=== PATIENT | female | born 1980 | race Caucasian/White ===

== ENCOUNTER 2017-06-10 07:31 | Inpatient (IN) | payer MEDICAID ==
[2017-06-10 08:26] LABS: #Eosinphils 0.1 thou/uL (0.0-0.7); #Lymphocytes 0.5 thou/uL (1.20-3.40); #Monocytes 0.4 thou/uL (0.11-0.59); %Basophils 0.2 % (0.0-1.0); %Eosinophils 1.5 % (0.0-10.0); %Monocytes 3.8 % (0.0-10.0); %Neutrophils 89.5 % (42.0-75.0); Hemoglobin 10.6 g/dL (12.0-16.0); Mean Corpuscular HGB CONC 32.8 g/dL (32.0-36.0); Mean Corpuscular Hemoglobin 31.1 pg (27.0-31.0); Mean Platelet Volume 6.8 fL (7.4-10.4); Platelet Count 351 thou/uL (130-400); White Blood Cell (WBC) Count 10.1 thou/uL (4.8-10.8)
[2017-06-10 08:31] LABS: BHCG - Serum Negative (NEGATIVE); Pregs Control Background? CLEAR/WHITE (CLR/WHITE); Pregs Control Bar Appear? YES (CONTROL BAR)
[2017-06-10 08:41] LABS: ALT (SGPT) 34 U/L (8-55); AST (SGOT) 22 U/L (5-34); Albumin 3.7 g/dL (3.5-5.0); Alkaline Phosphatase 87 U/L (40-150); Anion Gap 8 mmol/L (10-20); BUN (Urea Nitrogen) 10 mg/dL (7.0-18.7); Bilirubin, Total 0.7 mg/dL (0.2-1.2); Calc. Creatinine Clearance 0 mL/min (70-130); Calcium 8.9 mg/dL (7.8-10.44); Carbon Dioxide 31 mmol/L (22-29); Chloride 100 mmol/L (98-107); Estimated GFR-MDRD Greater than 90; Globulin 3.3 g/dL (2.4-3.5); Glucose 105 mg/dL (70-105); Lipase 10 U/L (8-78); Potassium 3.7 mmol/L (3.5-5.1); Sodium 135 mmol/L (136-145)
[2017-06-10] MEDS ORDERED: Morphine 4 MG/ML VIAL ONE (08:41)
[2017-06-10] MEDS ORDERED: Ondansetron HCl/PF 4 MG/2 ML Vial ONE (08:41)
[2017-06-10 08:58] LABS: INR-International Normal Ratio 1.3; Prothrombin Time 15.9 SEC (12.0-14.7)
[2017-06-10 09:26] LABS: Bilirubin Small (Negative); Blood, Urine Negative (Negative); Clarity CLEAR (Clear); Glucose, Urine (Dipstick) Negative (Negative); Leukocyte Trace (Negative); Nitrite Negative (Negative); Protein, Urine (Dipstick) 30 mg/dL (Neg-Trace); Specific Gravity, Urine 1.022 (1.002-1.036)
[2017-06-10 09:29] LABS: Hyaline Casts/LPF 4-6 HYALINE CAST LPF (0-3 Hyaline); Pathc Cast-AUWi Flag 0.27 (0-2.49); RBC/HPF 0-3 HPF (0-3)
[2017-06-10 09:30] LABS: Pregnancy Test - Urine (BHCG) Negative (Negative); Pregu Control Background? CLEAR/WHITE (CLR/WHITE); Pregu Control Bar Appear? YES (CONTROL BAR); Specific Gravity 1.022 (1.002-1.036)
[2017-06-10 09:39] LABS: Bacteria/HPF 1+ HPF (None Seen); Renal Epithelial 0-3 HPF (0-3); Transitional Epithelial 0-3 HPF (0-3)
--- NOTE | 2017-06-10 09:52 | CT ---
CT ABDOMEN AND PELVIS: HISTORY: This 36-year-old presents with a history of abdominal pain. FINDINGS: Contrast-enhanced CT images of the abdomen and pelvis were obtained. The lung bases were unremarkable. No evidence of free intraperitoneal air is seen. The liver contains a 1.5 x 1.0 cm hypodense lesion most compatible with a cyst. The spleen is unrema rkable. The pancreas is unremarkable. Adrenal gland and kidneys unremarkable. There is some free fluid in the abdomen and pelvis. A large cyst or cystic lesion is seen in the rig ht and left ovaries. The right ovarian lesion measures approximately 8.9 x 6.2 cm while the left ova mary lesion measures 5.6 x 4.6 cm. IMPRESSION: 1. There is abnormal thickening of the sigmoid colon concerning for colitis. Sigmoid colonic thicke tammy concerning for colitis. 2. Bilateral ovarian cysts or cystic lesions. 3. Free intraperitoneal fluid. POS: [facility]
[2017-06-10] MEDS ORDERED: HYDROmorphone 0.5 MG/0.5 ML SYRINGE ONE (10:27)
[2017-06-10] MEDS ORDERED: metroNIDAZOLE 500 MG/100 ML BAG ONE (11:29)
--- NOTE | 2017-06-10 11:38 | ULT ---
PELVIC ULTRASOUND INCLUDING TRANSABDOMINAL AND VASCULAR DUPLEX EXAMINATIONS: COMPARISON: Abdomen and pelvis CT scan from 06/10/2017. TECHNIQUE: A transvaginal examination was not performed because the patient refused because of pain. FINDINGS: The uterus measures 8.5 x 4.1 x 5.1 cm. The endometrium is 0.9 cm in thickness. There is a large am ount of free consolidation fluid and free fluid within the pelvis on the prior CT scan. This free fl uid was noted extending into the right upper quadrant and left upper quadrant, around the spleen. Th ere is a large right adnexal mass, which is probably a very debris-filled, proteinaceous, or hemorrha gic cyst, which measures 6.5 x 6.9 x 7.8 cm, corresponding to the right-sided cystic mass seen on the prior CT. In the left adnexal region, somewhat posteriorly, there is an approximately 4.6 x 4.9 x 5 .7 cm in diameter, partially cystic, partially debris-filled, complex, cystic mass, corresponding to the left-sided cyst on the prior CT. The free pelvic fluid appears to be echogenic, consistent with exudate. Additionally, on the prior CT, there was abnormal wall thickening of the transverse colon, which is in a very low location, in the left upper pelvis, with some nonspecific mesenteric fat stran ding, particularly anteriorly and in the left upper pelvis. IMPRESSION: Bilateral complex cystic adnexal masses, containing a considerable amount of debris, with a large geeta unt of somewhat echogenic free fluid. Along with the findings seen on the prior CT scan, the possibi lity of endometriosis with two endometriomas is certainly a prime concern. These could represent inf ectious abscesses, in association with pelvic inflammatory disease. No intrauterine mass. An obstet rical/gynecological consult is recommended. POS: [facility]
[2017-06-10] MEDS ORDERED: Piperacillin/Tazobactam 4.5 GM in Sodium Chloride 0.9% 100 ML IVPB SCH (12:15)
--- NOTE | 2017-06-10 13:20 | HP ---
DATE OF ADMISSION: 06/10/2017 ADMITTING PHYSICIAN: Rob Mccloud M.D. CHIEF COMPLAINT: Abdominal pain, fever. HISTORY OF PRESENT ILLNESS: Ms. Rosa is a 36-year-old white , last menstrual period approximately 1 month ago who presents to the ER complaining of a 4-day history of increasing abdominal pain and subjective fever at home. Patient states that she was initially seen at the Urgent Care out on [address] and was instructed to come to the emergency room here. Evaluation here in the ER demonstrated diffuse abdominal pain and an abnormal ultrasound and CT. PAST OBSTETRICAL HISTORY: Includes 3 previous uncomplicated vaginal deliveries. She states that her last Pap smear was late last year and she believes that was normal. She does state that she was told that she had a cyst on exam, but apparently no followup occurred after that. PAST MEDICAL HISTORY: Includes anxiety. Of note is the fact that she was admitted to [facility] approximately 1 week ago for what her mother describes as severe depression. PAST SURGICAL HISTORY: Unremarkable. ALLERGIES: ZITHROMAX which gives her a rash. SOCIAL HISTORY: She denies tobacco, alcohol, or illicit drug use. CURRENT MEDICATIONS: Lamotrigine 25 mg t.i.d., Haldol 5 mg 1/2 tablet b.i.d., lorazepam 1 mg b.i.d., and benztropine 0.5 mg b.i.d. REVIEW OF SYSTEMS: Positive for malaise, diffuse abdominal pain and subjective fever at home. She denies recent , vaginal discharge or change in bowel or bladder habits. PHYSICAL EXAMINATION LUNGS: Chest is clear to auscultation. CARDIOVASCULAR: Regular rate and rhythm. ABDOMEN: Diffusely tender, mildly distended. PELVIC: On pelvic examination, there is purulent discharge seen from the cervix. The cervix shows no gross lesions. On bimanual exam, she is tender. EXTREMITIES: No cyanosis, clubbing or edema. LABORATORY DATA: CBC on admission shows a white count of 10.1, hemoglobin at 10.6, hematocrit of 32.3 and a platelet count of 351 with 89% neutrophils. Her chemistry is normal with the exception of sodium of 135. Her bilirubin and liver function testing is normal. Urinalysis shows 7-10 wbcs, 0-3 rbcs and 1+ bacteria. Her test is negative. Initial CT showed bilateral adnexal masses with free fluid and some inflammation of the distal colon. Her uterus is normal size. Pelvic ultrasound confirms these findings and shows an 8 cm cystic mass on the right complex cystic mass with debris on the right side and an associated 5 cm mass with similar findings on the left side. Her uterus is normal size and her endometrium is 0.9 cm in thickness. I have reviewed these studies with Dr. Pichardo by phone. ASSESSMENT: 1. Abdominal pain. 2. Bilateral adnexal masses. PLAN: At this time, the clinical impression is suspicious for bilateral tubo- ovarian abscesses. She has had a dose of Zosyn and Flagyl in the ER and we will continue triple antibiotic therapy in the form of ampicillin, gentamicin, and clindamycin when she gets to the floor. She will be admitted and observed closely. Blood cultures, urine cultures, and gonorrhea and chlamydia cultures are pending. [facility]
[2017-06-10] MEDS ORDERED: ISOVUE-370 76%-LOCM 1 ML ONE (13:46)
[2017-06-10] MEDS ORDERED: Morphine 5 MG/ML SYRINGE SLOW IVP PRN (14:09)
[2017-06-10] MEDS ORDERED: Ondansetron HCl/PF 4 MG/2 ML Vial IVP PRN (14:10)
[2017-06-10] MEDS ORDERED: HYDROcodone/Acetaminophen 7.5/325 mg Tablet PO PRN ×2 (14:10)
[2017-06-10 14:13] VITALS: BMI 19.1
[2017-06-10] MEDS ORDERED: Lactated Ringer's 1,000 ML IV SCH (14:15)
[2017-06-10] MEDS ORDERED: Sodium Chloride 0.9% 10 ML ONE (14:21)
[2017-06-10] MEDS ORDERED: Ampicillin 2 GM in Sodium Chloride 0.9% 100 ML IVPB SCH (15:00)
[2017-06-10] MEDS ORDERED: Gentamicin Sulfate 80 MG in Premix Bag 1 BAG IVPB SCH (16:00)
[2017-06-10] MEDS ORDERED: traMADol HCl 50 MG TAB PO PRN (16:31)
[2017-06-10 16:53] VITALS: BP 111/66; TEMP 98.6
--- NOTE | 2017-06-10 17:01 | PRG ---
DATE OF SERVICE: 06/10/2017 I was asked to come to the floor to speak with the patient. She had told her nurse that she wanted h er IV removed and that she wanted to leave the hospital. She states that her pain is gone, and she n o longer wants to be here. I did once again reinforced with her the severity of her diagnosis with t he concern regarding tubo-ovarian abscesses and the need for IV antibiotics and further evaluation an d treatment. The patient listened, but stated that she no longer saw need to be there. I did stress the importance of treatment and that should she go home and monitored and untreated that this could result in worsening symptoms, peritonitis, and even . She understands all these and signed an A MA form and left the floor.
[2017-06-10] MEDS ORDERED: Clindamycin/D5W 900 MG in Premix Bag 1 BAG IVPB SCH (22:00)
[2017-06-14 01:02] LABS: Chlamydia by PCR Not Detected (NotDetected); GC by PCR Not Detected (NotDetected)
--- NOTE | 2017-06-15 00:14 | PQF ---
MARY Pollack MD [id number] CLINICAL DOCUMENTATION CLARIFICATION FORM: POST DISCHARGE Addendum to original discharge summary date: ____ Late entry note date: __ Date: 06/15/17 ATTN: Dr. Mccloud Please exercise your independent, professional judgment in responding to the clarification form. Clinical indicators are provided on the bottom of this form for your review Please check appropriate box(s): [ ] Protein Calorie Malnutrition: [ ] Mild [ ] Moderate [ ] Severe [ ] Other Malnutrition (please specify) __ [ ] Underweight without malnutrition [ ] Cachexia [ ] Other diagnosis [ x ] Unable to determine In addition, please specify: Present on Admission (POA): [ ] Yes [ ] No [ ] Unable to determine CLINICAL INDICATORS - SIGNS / SYMPTOMS / LABS BMI of ___19.1____ RISK FACTORS Depression/anxiety TREATMENT: Left AMA Moderate Malnutrition (in acute illness) Energy Intake: <75% of estimated energy requirement for > 7 days Weight Loss: 1-2%/1 week; 5%/ 1 month; 7.5%/3 months Other: mild body fat loss; mild muscle mass loss; mild fluid accumulation; Severe Malnutrition (in acute illness) Energy Intake: < 50% of estimated energy requirement for > 5 days Weight Loss: >1-2%/1 week; >5%/1 month; >7.5%/3 months Other: moderate body fat loss; moderate muscle mass loss; moderate- severe fluid accumulation; measurably reduced hide trimmer strength Moderate Malnutrition (in chronic illness) Energy Intake: <75% of estimated energy requirement for >1 month See my H&P and additional notes. [facility]
== END 2017-06-10 17:36 | disposition left against medical advice (07) | DRG 759 ==
LOC: ERS 07:31 → 3SW 12:54
PROVIDERS: ADMIT Obstetrics & Gynecology; ATTEND Obstetrics & Gynecology
DX: N70.93 Salpingitis and oophoritis, unspecified (principal); F31.9 Bipolar disorder, unspecified; F41.9 Anxiety disorder, unspecified
CPT/HCPCS: 36415; 74177; 76856; 80053; 81003; 81015; 81025; 83605; 83690; 84443; 84703; 85025; 85610; 87480; 87491; 87510; 87591; 87660; 93976; 94760; 96361; 96365; 96367; 96375; J2270; A4216; J0290; J1170; J1580; J2405; J2543; J7050

== ENCOUNTER 2017-06-24 20:33 | Emergency (ER) | payer MEDICAID ==
[2017-06-24] MEDS ORDERED: Ondansetron HCl/PF 4 MG/2 ML Vial ONE (21:08)
[2017-06-24 21:12] LABS: #Basophils 0.1 thou/uL (0.0-0.2); #Lymphocytes 1.7 thou/uL (1.20-3.40); #Monocytes 0.5 thou/uL (0.11-0.59); #Neutrophils 5.1 thou/uL (1.40-6.50); %Basophils 1.4 % (0.0-1.0); %Eosinophils 0.3 % (0.0-10.0); %Lymphocytes 23.4 % (21.0-51.0); %Monocytes 6.6 % (0.0-10.0); %Neutrophils 68.2 % (42.0-75.0); Hemoglobin 12.3 g/dL (12.0-16.0); Mean Corpuscular HGB CONC 32.3 g/dL (32.0-36.0); Mean Corpuscular Hemoglobin 28.6 pg (27.0-31.0); Mean Corpuscular Volume 88.3 fl (81.0-99.0); Mean Platelet Volume 6.4 fL (7.4-10.4); Platelet Count 459 thou/uL (130-400); RBC Distribution Width 12.6 % (11.5-14.5); Red Blood Cell (RBC) Count 4.31 mill/uL (4.20-5.40); White Blood Cell (WBC) Count 7.4 thou/uL (4.8-10.8)
[2017-06-24 21:26] LABS: ALT (SGPT) 22 U/L (8-55); AST (SGOT) 16 U/L (5-34); Albumin 4.3 g/dL (3.5-5.0); Alkaline Phosphatase 103 U/L (40-150); Anion Gap 14 mmol/L (10-20); BUN (Urea Nitrogen) 8 mg/dL (7.0-18.7); Bilirubin, Total 0.5 mg/dL (0.2-1.2); Calc. Creatinine Clearance 0 mL/min (70-130); Calcium 9.3 mg/dL (7.8-10.44); Carbon Dioxide 28 mmol/L (22-29); Chloride 102 mmol/L (98-107); Estimated GFR-MDRD Greater than 90; Globulin 3.4 g/dL (2.4-3.5); Glucose 96 mg/dL (70-105); Potassium 3.6 mmol/L (3.5-5.1); Protein, Total 7.7 g/dL (6.0-8.3); Sodium 140 mmol/L (136-145)
[2017-06-24 22:05] LABS: Bilirubin Negative (Negative); Blood, Urine Negative (Negative); Clarity Cloudy (Clear); Glucose, Urine (Dipstick) Negative (Negative); Leukocyte Trace (Negative); Nitrite Negative (Negative); Pregnancy Test - Urine (BHCG) Negative (Negative); Pregu Control Background? CLEAR/WHITE (CLR/WHITE); Pregu Control Bar Appear? YES (CONTROL BAR); Protein, Urine (Dipstick) Negative (Neg-Trace); Urobilinogen 0.2 mg/dL (0.2-1.0)
[2017-06-24 22:12] LABS: Bacteria/HPF 2+ HPF (None Seen); Hyaline Casts/LPF 0-3 HYALINE CAST LPF (0-3 Hyaline); RBC/HPF 0-3 HPF (0-3)
--- NOTE | 2017-06-24 22:21 | ULT ---
TRANSABDOMINAL PELVIC ULTRASOUND: 06/24/17 INDICATION: History of pelvic pain. COMPARISON: Prior exam dated 06/10/[address] of the abdomen and pelvis 06/10/17. TECHNIQUE: Bryant scale, color doppler with vascular duplex with spectral analysis is performed of the pelvis. FINDINGS: The uterus measures 8.9 x 4 x 8.1 cm. There is a large complex echogenic nonvascular cyst within the right ovary measuring 7.9 x 5.8 x 3.1 cm. Right ovary measures 8.2, x 6.1 x 4.1 cm. Two separate complex cysts are seen within the left ovary measuring 4.3 x 2.7 x 4.6 cm whereas the se cond cyst measures 6.4 x 4.4 x 5.6 cm. Both adnexal cystic lesions are likely stable when accounting for slight differences in technique and measurement. Small amount of free fluid is present within the pelvis. There is vascular flow to both ovaries. IMPRESSION: Large complex nonvascularized echogenic cysts with fluid-fluid level suspicious for large hemorrhagic cysts which can be seen with endometriomas. These have been relatively stable since 06/10/17. OB-PAINT TECHNICIAN consultation and nonemergent followup MRI of the pelvis with and without contrast may be helpful for improved characterization. POS: [facility]
== END 2017-06-24 22:30 | disposition home or self-care (01) ==
LOC: SCSER 20:33
DX: N76.0 Acute vaginitis (principal); N83.202 Unspecified ovarian cyst, left side; N83.201 Unspecified ovarian cyst, right side; R19.7 Diarrhea, unspecified; F90.9 Attention-deficit hyperactivity disorder, unspecified type; F41.9 Anxiety disorder, unspecified
CPT/HCPCS: 76856; 80053; 81003; 81015; 81025; 85025; 93976; 96361; 96374; J2405

== ENCOUNTER 2019-05-20 22:05 | Emergency (ER) | payer OTHER, SELFPAY ==
[2019-05-20 22:37] LABS: Bilirubin Negative (Negative); Blood, Urine Negative (Negative); Clarity Clear (Clear); Glucose, Urine (Dipstick) Normal (Negative); Leukocyte Negative Leu/uL (Negative); Nitrite Negative (Negative); Protein, Urine (Dipstick) Negative (Neg-Trace); Urobilinogen Normal mg/dL (Less than 2)
[2019-05-20 22:46] LABS: #Basophils 0.1 thou/uL (0.0-0.2); #Eosinphils 0.1 thou/uL (0.0-0.7); #Lymphocytes 2.6 thou/uL (1.20-3.40); #Monocytes 0.6 thou/uL (0.11-0.59); #Neutrophils 4.2 thou/uL (1.40-6.50); %Basophils 1.4 % (0.0-1.0); %Lymphocytes 33.9 % (21.0-51.0); %Monocytes 7.9 % (0.0-10.0); %Neutrophils 55.8 % (42.0-75.0); Hemoglobin 10.5 g/dL (12.0-16.0); Mean Corpuscular HGB CONC 33.5 g/dL (32.0-36.0); Mean Corpuscular Hemoglobin 28.9 pg (27.0-31.0); Mean Platelet Volume 6.8 fL (7.4-10.4); Platelet Count 375 thou/uL (130-400); RBC Distribution Width 13.9 % (11.5-14.5); Red Blood Cell (RBC) Count 3.62 mill/uL (4.20-5.40); White Blood Cell (WBC) Count 7.6 thou/uL (4.8-10.8)
[2019-05-20 22:51] LABS: BHCG - Serum Negative (NEGATIVE); Pregs Control Background? CLEAR/WHITE (CLR/WHITE); Pregs Control Bar Appear? YES (CONTROL BAR)
[2019-05-20] MEDS ORDERED: Ondansetron PF 4 MG/2 ML Vial ONE (22:58)
[2019-05-20] MEDS ORDERED: Ketorolac Tromethamine 30 MG/ML VIAL ONE (22:58)
[2019-05-20 22:59] LABS: ALT (SGPT) 10 U/L (8-55); AST (SGOT) 16 U/L (5-34); Alkaline Phosphatase 72 U/L (40-110); Anion Gap 10 mmol/L (10-20); BUN (Urea Nitrogen) 8 mg/dL (7.0-18.7); Bilirubin, Total 0.2 mg/dL (0.2-1.2); Calc. Creatinine Clearance 0 mL/min (70-130); Calcium 8.6 mg/dL (7.8-10.44); Carbon Dioxide 28 mmol/L (22-29); Chloride 104 mmol/L (98-107); Estimated GFR-MDRD Greater than 90; Globulin 3.1 g/dL (2.4-3.5); Glucose 90 mg/dL (70-105); Lipase 48 U/L (8-78); Protein, Total 7.1 g/dL (6.0-8.3); Sodium 139 mmol/L (136-145)
[2019-05-20 23:04] LABS: Potassium 2.6 mmol/L (3.5-5.1)
[2019-05-20] MEDS ORDERED: Potassium Chloride 20 MEQ TAB ONE (23:51)
--- NOTE | 2019-05-21 00:01 | ULT ---
Pelvic sonogram transabdominal and transvaginal imaging with duplex evaluation HISTORY: Pelvic pain. Ovarian cyst. FINDINGS: Urinary bladder is decompressed. Uterus has a heterogeneous echotexture and is 9.4 cm. Endo metrium is 1.3 cm. Physiologic amount of free fluid within the cul-de-sac. Good color and spectral Doppler flow within each ovary. Complex cystic mass of the right ovary measur es up to 10.6 cm x 9.8 cm x 6.8 cm. Complex cystic mass of the left kidney measures up to 3.2 cm x 3.2 cm x 2.5 cm. IMPRESSION: Persistent large bilateral adnexal complex cystic masses. Similar to description on prior CT exam. No evidence of ovarian torsion. Thickened endometrium 1.3 cm.
== END 2019-05-21 00:45 | disposition home or self-care (01) ==
LOC: ERS 22:05
DX: R19.09 Other intra-abdominal and pelvic swelling, mass and lump (principal); E87.6 Hypokalemia; R11.0 Nausea; E78.5 Hyperlipidemia, unspecified; F90.9 Attention-deficit hyperactivity disorder, unspecified type; F41.9 Anxiety disorder, unspecified
CPT/HCPCS: 76857; 80053; 81003; 83690; 84703; 85025; 96361; 96374; 96375; J1885; J2405

== ENCOUNTER 2019-07-02 19:08 | Emergency (ER) | payer MEDICAID ==
[2019-07-02] MEDS ORDERED: HYDROcodone/Acetaminophen 5/325 mg Tablet ONE (20:07)
[2019-07-02] MEDS ORDERED: Ketorolac Tromethamine 30 MG/ML VIAL ONE (20:07)
== END 2019-07-02 20:33 | disposition home or self-care (01) ==
LOC: ERS 19:08
DX: R19.00 Intra-abdominal and pelvic swelling, mass and lump, unspecified site (principal); F90.9 Attention-deficit hyperactivity disorder, unspecified type; F41.9 Anxiety disorder, unspecified
CPT/HCPCS: 76856; 96372; 99284; J1885

== ENCOUNTER 2019-09-04 15:15 | Emergency (ER) | payer OTHER ==
[2019-09-04 16:30] LABS: #Eosinphils 0.2 thou/uL (0.0-0.7); #Lymphocytes 1.2 thou/uL (1.20-3.40); #Monocytes 0.4 thou/uL (0.11-0.59); #Neutrophils 4.3 thou/uL (1.40-6.50); %Basophils 0.2 % (0.0-1.0); %Lymphocytes 20.1 % (21.0-51.0); %Monocytes 5.9 % (0.0-10.0); %Neutrophils 70.7 % (42.0-75.0); Hemoglobin 12.4 g/dL (12.0-16.0); Mean Corpuscular Hemoglobin 29.3 pg (27.0-31.0); Mean Corpuscular Volume 88.9 fL (78.0-98.0); Mean Platelet Volume 6.7 fL (7.4-10.4); Platelet Count 450 thou/uL (130-400); Red Blood Cell (RBC) Count 4.25 mill/uL (4.20-5.40); White Blood Cell (WBC) Count 6.1 thou/uL (4.8-10.8)
[2019-09-04 16:38] LABS: BHCG - Serum Negative (NEGATIVE); Pregs Control Background? CLEAR/WHITE (CLR/WHITE); Pregs Control Bar Appear? YES (CONTROL BAR)
[2019-09-04 16:49] LABS: ALT (SGPT) 13 U/L (8-55); AST (SGOT) 14 U/L (5-34); Albumin 3.9 g/dL (3.5-5.0); Alkaline Phosphatase 72 U/L (40-110); Anion Gap 11 mmol/L (10-20); BUN (Urea Nitrogen) 8 mg/dL (7.0-18.7); Bilirubin, Total 0.2 mg/dL (0.2-1.2); Calc. Creatinine Clearance 0 mL/min (70-130); Calcium 8.5 mg/dL (7.8-10.44); Carbon Dioxide 27 mmol/L (22-29); Chloride 105 mmol/L (98-107); Estimated GFR-MDRD Greater than 90; Globulin 3.3 g/dL (2.4-3.5); Glucose 95 mg/dL (70-105); Protein, Total 7.2 g/dL (6.0-8.3); Sodium 140 mmol/L (136-145)
[2019-09-04 16:56] LABS: Potassium 2.9 mmol/L (3.5-5.1)
[2019-09-04] MEDS ORDERED: Ketorolac Tromethamine 30 MG/ML VIAL ONE (17:38)
[2019-09-04] MEDS ORDERED: Potassium Chloride 20 MEQ TAB ONE (17:38)
[2019-09-04 18:10] LABS: Bilirubin Negative (Negative); Blood, Urine Negative (Negative); Clarity Clear (Clear); Glucose, Urine (Dipstick) Normal (Negative); Leukocyte 500 Leu/uL (Negative); Nitrite Negative (Negative); Protein, Urine (Dipstick) Negative (Neg-Trace); RBC/HPF 0-3 HPF (0-3); Squamous Epithelial 0-3 HPF (0-3); Urobilinogen Normal mg/dL (Less than 2); WBC/HPF Greater than 50 HPF (0-3)
[2019-09-04 18:12] LABS: Bacteria/HPF 1+ HPF (None Seen)
[2019-09-04] MEDS ORDERED: HYDROcodone/Acetaminophen 5/325 mg Tablet ONE (19:14)
--- NOTE | 2019-09-04 21:52 | ULT ---
PELVIC ULTRASOUND: 09/04/19 INDICATIONS: Pelvic pain. There are bilateral adnexal masses which have been previously described. Technologist states patient is scheduled for surgery. Comparison made to pelvic ultrasound exam dated 07/02/19. FINDINGS: The uterus has a normal appearance. Endometrium is within normal range at 6 to 8 mm. 10 cm mass in th e right adnexa is again seen. This is a hypoechoic homogeneous soft tissue appearing mass which appea rs to arise from the right ovary. It is unchanged in appearance. Left adnexa again shows a 2.5 to 3.0 cm complex mass which also appears stable. Color Doppler and spectral analysis demonstrates blood flow to both ovaries. IMPRESSION: Bilateral adnexal masses, larger on the right again noted. POS: [facility]
== END 2019-09-04 19:18 | disposition home or self-care (01) ==
LOC: ERS 15:15
DX: N10 Acute pyelonephritis (principal); N83.201 Unspecified ovarian cyst, right side; J45.909 Unspecified asthma, uncomplicated; F90.9 Attention-deficit hyperactivity disorder, unspecified type; F41.9 Anxiety disorder, unspecified; F17.210 Nicotine dependence, cigarettes, uncomplicated
CPT/HCPCS: 36415; 76856; 80053; 81003; 81015; 84703; 85025; 96372; J1885

== ENCOUNTER 2019-10-23 09:06 | Day surgery (SDC) | payer OTHER ==
[2019-10-16 16:29] VITALS: BMI 22.6
[2019-10-18 13:47] LABS: Hemoglobin 12.4 g/dL (12.0-16.0); Mean Corpuscular HGB CONC 33.2 g/dL (32.0-36.0); Mean Corpuscular Hemoglobin 29.8 pg (27.0-31.0); Mean Corpuscular Volume 89.7 fL (78.0-98.0); Mean Platelet Volume 7.2 fL (7.4-10.4); Platelet Count 390 thou/uL (130-400); RBC Distribution Width 14.2 % (11.5-14.5); Red Blood Cell (RBC) Count 4.18 mill/uL (4.20-5.40); White Blood Cell (WBC) Count 5.9 thou/uL (4.8-10.8)
[2019-10-18 14:03] LABS: BHCG - Serum Negative (NEGATIVE); Pregs Control Background? CLEAR/WHITE (CLR/WHITE); Pregs Control Bar Appear? YES (CONTROL BAR)
[2019-10-19 11:43] LABS: SARS-CoV-2 MS2 Positive; SARS-CoV-2 N Gene Negative; SARS-CoV-2 S Gene Negative; SARS-CoV-2 by NAA Not Detected (NotDetected); SARS-CoV-2 orf1ab Negative
[2019-10-23] MEDS ORDERED: Gabapentin 300 MG CAP ONE (09:33)
[2019-10-23] MEDS ORDERED: CeleCOXIB 100 MG CAP ONE (09:33)
[2019-10-23] MEDS ORDERED: Famotidine/PF 20 mg/2ml Vial ONE ×2 (09:51→10:32)
[2019-10-23] MEDS ORDERED: Lidocaine 1% w/Epinephrine 1:100K 20 ML VIAL ONE (10:26)
[2019-10-23] MEDS ORDERED: Bupivacaine PF 0.5% 30 ML VIAL ONE (10:26)
[2019-10-23] MEDS ORDERED: Midazolam HCl 2 mg/2 ml Vial ONE (10:28)
[2019-10-23] MEDS ORDERED: Fentanyl 100 MCG/2 ML VIAL ONE ×2 (10:32)
[2019-10-23] MEDS ORDERED: PROPOFOL 200 MG/20 ML VIAL ONE (10:52)
[2019-10-23] MEDS ORDERED: Ondansetron PF 4 MG/2 ML Vial ONE (10:52)
[2019-10-23] MEDS ORDERED: EPHEDRINE 25 MG/5 ML SYRINGE ONE (10:52)
[2019-10-23] MEDS ORDERED: Dexamethasone 20 MG/5 ML VIAL ONE (10:52)
[2019-10-23] MEDS ORDERED: Lidocaine 1% PF 5 ML VIAL ONE (10:52)
[2019-10-23] MEDS ORDERED: Rocuronium Bromide 10 MG/ML (10ML VIAL) ONE (10:52)
[2019-10-23] MEDS ORDERED: PHENYLEPHRINE-NS 100 MCG/ML 10 ML SYRINGE ONE (10:52)
[2019-10-23] MEDS ORDERED: Metoclopramide HCl 10 MG/2 ML VIAL ONE (10:52)
[2019-10-23] MEDS ORDERED: Promethazine HCl 25 MG/ML VIAL SLOW IVP PRN (13:51)
[2019-10-23] MEDS ORDERED: Promethazine HCl 25 MG/ML VIAL IM PRN (13:51)
[2019-10-23] MEDS ORDERED: Meperidine HCl/PF 25 MG/ML VIAL SLOW IVP PRN (13:51)
[2019-10-23] MEDS ORDERED: Ondansetron HCl/PF 4 MG/2 ML Vial IVP PRN (13:51)
[2019-10-23] MEDS ORDERED: Meperidine HCl/PF 25 MG/ML VIAL ONE (14:24)
[2019-10-23] MEDS ORDERED: HYDROcodone/Acetaminophen 5/325 mg Tablet ONE (15:30)
--- NOTE | 2019-10-24 11:36 | OP ---
DATE OF PROCEDURE: 10/23/2019 PREOPERATIVE DIAGNOSES: 1. Pelvic pain. 2. Bilateral adnexal masses. 3. Endometriosis. POSTOPERATIVE DIAGNOSES: 1. Pelvic pain. 2. Bilateral adnexal masses. 3. Endometriosis. PROCEDURES: Robotic assisted total laparoscopic hysterectomy, bilateral salpingo-oophorectomy. ANESTHESIA: General endotracheal. ORAL SURGEON SURGEON: Bridgette Chavez PA-C PATHOLOGY: Uterus, cervix, bilateral fallopian tubes, and ovaries. ESTIMATED BLOOD LOSS: 50 mL. IVF: 1500 mL of crystalloid. URINE OUTPUT: 20 mL clear urine. FINDINGS: Normal 9 cm appearing uterus, normal cervix, large right ovarian endometrioma as well as a left ovarian endometrioma. Scattered endometriotic implants black and red throughout the pelvis into an anterior cul-de-sac with bilateral ovaries adherent to the pelvic sidewall. Normal fallopian tubes bilaterally. Ureters and bladder were visualized intact and excellent hemostasis was present. DESCRIPTION OF PROCEDURE: The patient was taken to the operating room, where general anesthesia was obtained without difficulty. The patient was prepped and draped in sterile fashion in a dorsal lithotomy position. Thomas catheter was placed in the bladder. A speculum was placed in the vagina. Anterior lip of the cervix was grasped with a single-tooth tenaculum. The uterus then sounded to 9 cm and cervix was progressively dilated with Christiano dilators. The BOB manipulator was assembled with a 4 cm cup and an 8 cm tip and this manipulator was inserted into the uterus. Balloon was inflated. The speculum and tenaculum were removed out of the vagina. Legs were placed in low lithotomy. Attention was turned to the abdomen. The supraumbilical space was infiltrated with anesthetic solution. A 12-mm skin incision was made on the superior aspect of the umbilicus and the Veress needle was passed into the abdomen noting an opening pressure of 2 mmHg. Pneumoperitoneum was obtained. The 12-mm trocar was advanced into the abdomen and confirmed placement with robotic camera. Steep Trendelenburg was obtained. Right and left lower quadrant 8 mm robotic trocars were placed under direct visualization after infiltrating with anesthetic. An 11 mm right upper quadrant fast food assistant restaurant manager port was also placed under direct visualization after infiltrating with anesthetic. The above findings were noted. The robot was docked. The right robotic arm contained monopolar scissors. Left robotic arm contained a fenestrated bipolar. The surgeon console took control. The left fallopian tube was grasped and elevated. The IP ligament was then clamped hugging the ovary. The ureter was noted to run medially at the pelvic brim. The IP was cauterized with the fenestrated and incised with the scissors on cautery. The meso-ovarian was also clamped securely with fenestrated, cauterized for hemostasis and then incised with the scissors down to the round ligament that was cauterized in the midportion and incised with the scissors and the anterior leaf of the broad ligament was incised, undermining with the fenestrated to ensure clear window and the fenestrated was used to bluntly dissect the retroperitoneum off the uterine vessels as well as achieve hemostasis of small perforating vessels into the side of the uterus. The posterior leaf of broad ligament was also opened up and this allowed direct visualization of the ureter and the pelvic sidewall. The ureter on the left side did run quite high and was noted to cross where it crossed underneath the uterine vessels. This was well away from the internal cervical os, however, higher than normal. The vesicouterine peritoneum was then incised also undermining with the fenestrated and incising with the scissors on cautery and the bladder flap was created by transecting the adventitial fibers with the scissors and then scoring on the pubic cervical fascia and this bluntly dissecting down below the level of the colpotomizer rim with the back end of the scissors. The uterine vessels were taken with the fenestrated on cautery just above the level of the internal cervical os while pushing in on the BOB manipulator. Attention was then turned to the right side. The right side had a large ovarian now. The round was immediately identified and this was cauterized in the midportion. The utero-ovarian was also very visible on that side and this was cauterized multiple times with the fenestrated. These 2 areas were then incised and the incision was met in the middle with the technique of cauterizing and then incising for hemostasis. The anterior leaf of the broad ligament was then incised down to the bladder flap. The ovary was kind of retracted away and the posterior leaf of the broad ligament was also incised down to the uterosacral ligament. The retroperitoneum was dissected off the uterine vessels and the ureter was identified. Again, this side also was running higher in the pelvis than normal. The uterine vessels were cauterized multiple times. At that time, attention was turned to the right ovary. The right ovary was adherent to the pelvic sidewall and this was gently peeled off the peritoneum and the IP ligament was identified and the peritoneum just lateral and parallel to the IP ligament was incised. A window was made underneath the peritoneum to allow for more secure hemostasis of the IP as well as to prevent any damage to surrounding structures. This was cauterized multiple times and then incised. The ovary was adherent on the sidewall past the IP ligament and the peritoneum was carefully peeled off using the fenestrated to undermine and the scissors to incise to ensure no underlying structures were damaged. Once the ovary had been completely freed from the pelvic sidewall, the colpotomy was performed circumferentially around the cervix on the colpotomizer ring. The uterus was placed into the vagina and then the applied medical 14 cm bag that was tied up in strings was placed into the abdomen through the vagina and the bag was deployed open. The ovary was placed into the bag and at that time, the fast food assistant restaurant manager punctured the ovary to allow the fluid to drain, and this was a black thick fluid consistent with an endometrioma. Once this had sufficiently drained, the bag was brought out of the vagina and copious irrigation was performed of the pelvis and pericolic gutters. Hemostasis was noted and achieved the vaginal cuff with the fenestrated, the scissors were traded out for the needle wagon driver salesperson. At that time, it was noted where the right ovary was adherent to the sidewall, the ureter was underlying just underneath there. There was some cautery that was performed and some concern was for any thermal damage that occurred next to the ureter. Therefore, Urology was called. At that time, the vaginal cuff was closed with 2-0 Stratafix barbed suture in a running fashion and run back for a second layer with excellent reapproximation and hemostasis. Dr. Sloan then came in. He examined the area along the right ureter and dissected off the peritoneum adequately. He felt that there was not concern for thermal damage or any direct damage to the ureter during that procedure, and I did not feel that there was any additional measures that needed to be made. At that time, copious irrigation was again performed. The bladder was back filled, noted to be intact. No inadvertent damage. Low pressure check was performed and hemostasis was noted to be excellent. All instruments were removed from the abdomen and pneumoperitoneum was released and the robot was undocked. The fascia of the 12 mm port was closed with 0 Vicryl in a gywiac-ws-ncyga fashion. The skin was closed with 4-0 Monocryl in subcuticular fashion. Dermabond was applied. The vaginal cuff was checked and noted to be hemostatic with excellent closure vaginally and all instruments removed from the vagina. The patient tolerated the procedure well. Sponge and needle counts correct x2. The patient was taken to the recovery room in stable condition. The patient received Ancef 2 g prior to the procedure. Job ID: [id number]
== END 2019-10-23 17:53 | disposition home or self-care (01) ==
LOC: SDC 09:06
PROVIDERS: ATTEND Student in an Organized Health Care Education/Training Program
PROC: 0UT94ZZ Resection of Uterus, Percutaneous Endoscopic Approach (ICD-10-PCS; principal; 2019-10-23)
PROC: 0UT74ZZ Resection of Bilateral Fallopian Tubes, Percutaneous Endoscopic Approach (ICD-10-PCS; principal; 2019-10-23)
PROC: 0UT24ZZ Resection of Bilateral Ovaries, Percutaneous Endoscopic Approach (ICD-10-PCS; principal; 2019-10-23)
DX: N87.9 Dysplasia of cervix uteri, unspecified (principal); N72 Inflammatory disease of cervix uteri; D27.0 Benign neoplasm of right ovary; N83.12 Corpus luteum cyst of left ovary; N80.1 Endometriosis of ovary; N80.3 Endometriosis of pelvic peritoneum; N73.6 Female pelvic peritoneal adhesions (postinfective); J45.909 Unspecified asthma, uncomplicated; F43.10 Post-traumatic stress disorder, unspecified; F90.9 Attention-deficit hyperactivity disorder, unspecified type; Z79.899 Other long term (current) drug therapy; Z88.1 Allergy status to other antibiotic agents; Z88.5 Allergy status to narcotic agent; Z88.8 Allergy status to other drugs, medicaments and biological substances
CPT/HCPCS: 36415; 36600; 84702; 84703; 85027; 86850; 86900; 86901; 87635; 88307; J0690; J1100; J2175; J2250; J2405; J2704; J2765; J3010; S0020; S0028; U0003